=== PATIENT | female | born 1985 | race Caucasian/White ===

== ENCOUNTER 2022-05-05 12:37 | Emergency (ER) | payer OTHER, SELFPAY ==
[2022-05-05 12:42] VITALS: BP 117/69; PULSE 87; RESP 16; TEMP 36.3; O2SAT 98
--- NOTE | 2022-05-05 13:35 | NUR.NOTE ---
Nursing Note:[phone] (Frannie, mom)
--- NOTE | 2022-05-05 13:39 | W.ED.GENAD ---
Discharge Plan Disposition Patient Disposition: HOME Condition: Stable Discharge Details Clinical Impression: Mild closed head injury Primary Care Provider: None,None ED Provider: Sanjeev Villasenor Home Meds and New Rx's Prescriptions: No Action No Known Home Meds Discharge Instructions Instructions: Head Injury (ED), Facial Contusion (ED) Additional Instructions: At this time no worrisome findings were noted on physical exam. It is recommended that you apply a cold compress for 20 minutes at a time with at least 20 minutes between applications to help with some of the tenderness and pain. You may use [id number] analgesia as needed for discomfort. If you have any new or worsening symptoms as discussed return immediately to the emergency department for reassessment. Referrals: Primary Care Provider [Outside] (As needed for reassessment) Discharge Data Discharge Date/Time-TO BE ENTERED AT DEPARTURE: 05/05/22 13:48 Medical Decision Making Patient presenting to the emergency department for chief complaint of head injury. She reports that on and Friday she was simply walking through her home and struck a metal light fixture that was coming out of the wall. Patient denies any loss of consciousness, vomiting, or focal neurological deficits. She had slight discomfort to the area which was minor. Pain did seem to increase today with some slight nausea and blurry vision. Patient denies any other symptoms. Physical exam shows tenderness to the left lateral frontal scalp superior to the temporal area. Exam is otherwise unremarkable with no noted focal neurological deficits no worrisome findings. I have very low suspicion of a skull fracture or intracranial abnormality given the mechanism of injury was very low. I did discuss with patient consideration of CT imaging given that she is having worsening symptoms and she has a history of concussion. Patient reports that with her last concussion she had multiple CT images and states that this time she would like to avoid any imaging. I feel this is more than reasonable given mechanism of injury and complaining symptoms. I feel that patient more likely has associated headache from mild head trauma. After thorough discussion of risk versus benefit of further work-up we established a plan for patient to use conservative management for symptoms and to monitor symptoms with return precautions thoroughly discussed. After discussion of diagnosis and plan of care patient has no further needs, questions, or concerns and states clear understanding to return to the emergency department for any worsening symptoms. This documentation was generated using [employer] system, please disregard any oddities of phrase or misspellings. HPI General Mode of arrival: ambulatory. Date/Time Provider Initiated Documentation: 05/05/22 12:41. Limitations to Documentation: no limitations. Information obtained by: patient and RN notes reviewed. History of Present Illness 36 year old F presents to the emergency department with the chief complaint of head injury, described as moderate, with intensity rated at 6. Quality is described as aching, and is localized to the head. Patient reports no radiation. Patient started experiencing this day(s) (3) and it has been intermittent. No relieving factors improve symptom(s), No exacerbating factors reported . Patient did receive the following treatments prior to arrival, none Related Data Home Medications Medication Instructions Recorded Confirmed Unknown [No Known Home Meds] 05/05/22 05/05/22 Allergies Allergy/AdvReac Type Severity Reaction Status Date / Time vancomycin Allergy Severe Anaphylaxis Unverified 05/05/22 12:59 General Stated Complaint: HeadInjury JF: 2 Review of Systems Constitutional Constitutional: Denies chills, Denies fever(s), Denies frequent falls, Reports headache(s) and Denies malaise Eyes Eyes: Reports blurry vision, Denies diplopia, Denies loss of vision and Reports photophobia ENT Ears, Nose, Mouth, and Throat: Reports as per HPI, Denies dizziness, Denies ear discharge, Denies otalgia, Reports facial pain, Reports headache(s), Denies epistaxis, Denies nasal discharge and Denies neck pain Cardiovascular Cardiovascular: Denies chest pain, Denies syncope and Denies dyspnea Respiratory Respiratory: Denies dyspnea Gastrointestinal Gastrointestinal: Denies abdominal pain and Denies vomiting Musculoskeletal Musculoskeletal: Denies abnormal gait, Denies back pain, Denies neck pain and Denies numbness Integumentary/Breasts Skin/Breast: Denies wounds Neurologic Neurologic: Reports as per HPI, Denies abnormal speech, Denies abnormal gait, Denies behavioral changes, Denies confusion, Denies dizziness, Denies syncope, Denies frequent falls, Reports headache(s), Denies lack of coordination, Denies localized weakness, Denies loss of vision, Denies memory loss and Denies numbness Psychiatric Psychiatric: Reports anxiety, Denies behavioral changes, Denies confusion and Denies memory loss PFSH All Active Problems Mild closed head injury (Acute) Social History Smoking/Tobacco Use Status: Never Smoking risk assessment performed?: Yes Alcohol Intake: never Drug use: Never Substance use type: does not use Do you feel safe at home: Yes Do you feel safe in your relationship?: Yes Exam Const General: cooperative, healthy appearing, no acute distress and well groomed Orientation: alert, awake and oriented x3 HENMT Head: normal to inspection Ears: hearing grossly normal bilaterally and TM's normal bilaterally Mouth: oral mucosae normal and moist mucous membranes Throat: posterior oropharynx normal Eyes Visual Grimes: normal visual grimes by confrontation Alignment and Position: alignment normal Periorbital: periorbital findings normal Eyelids: eyelids normal Sclera: sclerae normal Cornea: corneas normal Pupils: PERRL EOM: EOM intact bilaterally Neck Neck: normal visual inspection, full ROM, no lymphadenopathy and no meningeal signs Resp Effort & Inspection: normal respiratory effort and able to speak in complete sentences Auscultation: clear to auscultation bilaterally Cardio Rate: regular rate Rhythm: regular rhythm Heart Sounds: S1 normal and S2 normal Neuro General: patient alert, patient awake, patient oriented x3, gait normal, tone normal, moves all extremities, CN's II-XI intact bilaterally and not confused Cognition: normal cognition Speech: speech normal Motor: muscle tone normal throughout, strength 5/5 throughout, no pronator drift, no movement abnormalities noted and no fasciculations Sensory Exam: no sensory deficits noted Coordination: [id number] test normal and Does not sway with eyes open Course Vital Signs Vital signs: Vital Signs Temperature 36.3 C L 05/05/22 12:42 Pulse 87 05/05/22 12:42 Respiratory Rate 16 05/05/22 12:42 Blood Pressure 117/69 05/05/22 12:42 Pulse Oximetry 98 05/05/22 12:42 Temperature 36.3 C L 05/05/22 12:42 Temperature Source Skin 05/05/22 12:42 Pulse 87 05/05/22 12:42 Respiratory Rate 16 05/05/22 12:42 Respiratory Effort 05/05/22 13:00 Respiratory Depth Normal 05/05/22 13:00 Respiratory Pattern Normal 05/05/22 13:00 Blood Pressure 117/69 05/05/22 12:42 Pulse Oximetry 98 05/05/22 12:42 Oxygen Delivery Method Room Air 05/05/22 12:42 Oxygen Flow Rate 0 05/05/22 12:42 Pain Level 6 05/05/22 12:42 Comment 05/05/22 12:42
[2022-05-05 13:46] VITALS: BP 110/73; PULSE 78; RESP 16; TEMP 36.2; O2SAT 98
--- NOTE | 2022-05-05 13:52 | NUR.NOTE ---
Nursing Note: Referral given to Care Management needs PCP, to establish care, routine follow up.
--- NOTE | 2022-05-06 17:04 | CMACTNOTE_ITS ---
- If Service Date Differs Date of service: 05/06/22 Time of Service: 17:04 Care Management Activity Note Kisha is seen in the ED for a closed head injury. At the request of ED provider, ARMANI coordinates a referral to Ashkan Roberts MD, of [facility], on-call provider, to assist Kisha in obtaining a routine follow up appointment and in establishing care with a PCP. She has [facility] for health insurance.
== END 2022-05-05 13:48 | disposition home or self-care (01) ==
PROVIDERS: Emergency Provider Nurse Practitioner Family
DX: S09.90XA Unspecified injury of head, initial encounter (principal); W22.8XXA Striking against or struck by other objects, initial encounter; Y92.009 Unspecified place in unspecified non-institutional (private) residence as the place of occurrence of the external cause
CPT/HCPCS: 99281; 99282